=== PATIENT | male | born 1995 | race Two or more races ===

== ENCOUNTER 2022-01-13 05:43 | Emergency (ER) | payer BC ==
[2022-01-13] MEDS ORDERED: Tetracaine HCl/PF 0.5% 4 ML Bottle EYEBOTH STA (06:07)
[2022-01-13] MEDS ORDERED: Fluorescein 1 MG Ophth Strip EYEBOTH ONE (06:08)
[2022-01-13] MEDS ORDERED: Erythromycin Base 0.5% Ophth Oint 1 GM Tube EYERT STA (06:24)
[2022-01-13] MEDS ORDERED: Erythromycin Base 0.5% Ophth Oint 1 GM Tube EYEBOTH STA (06:25)
== END 2022-01-13 06:41 | disposition home or self-care (01) ==
LOC: MW.ED 05:43
DX: H10.021 Other mucopurulent conjunctivitis, right eye (principal); Z79.899 Other long term (current) drug therapy
CPT/HCPCS: 99283; A9270